=== PATIENT | male | born 1980 | race Caucasian/White ===

== ENCOUNTER 2023-07-23 01:58 | Outpatient (CLI) | payer BC, SELFPAY ==
[2023-07-23 09:20] LABS: Abs Immature Grans 0.01 10^3/uL (0.0-0.06); Absolute Basophil Count 0.03 10^3/uL (0.0-0.2); Absolute Eosinophil Count 0.22 10^3/uL (0.0-0.7); Absolute Lymphocyte Count 1.46 10^3/uL (1.2-3.4); Absolute Monocyte Count 0.36 10^3/uL (0.1-0.8); Absolute Neutrophil Count 2.12 10^3/uL (1.2-6.7); Basophils % 0.7; Eosinophils % 5.2; HCT 46.5 % (40.0-50.0); HGB 15.8 g/dL (13.5-17.5); Immature Grans % 0.2; Lymphocytes % 34.8; MCH 30.7 pg (27.0-33.0); MCV 91 fL (80-95); MPV 9.3 fL (8.0-11.0); Monocytes % 8.6; Neutrophils % 50.5; Platelet Count 193 10^3/uL (130-400); RBC 5.14 10^6/uL (4.36-5.78); RDW-SD 40.2 fL
[2023-07-23 09:51] LABS: ALT 28 U/L (16-63); AST 23 U/L (15-37); Albumin 4.1 g/dL (3.4-5.0); Alkaline Phosphatase 45 U/L (46-116); Anion Gap 4.7 mmol/L (3-11); BUN 20 mg/dL (7-18); Bilirubin, Total 0.8 mg/dL (0.2-1.0); CO2 30.3 mmol/L (21.0-32.0); CREATININE 1.3 mg/dL (0.70-1.30); Calcium 9.2 mg/dL (8.5-10.1); Calculated LDL 122 mg/dL (<100); Chloride 104 mmol/L (98-107); Cholesterol 206 mg/dL (<200); Estimated GFR 69.04 (mL/min/1.73m2); Glucose 98 mg/dL (74-106); HDL Cholesterol 78 mg/dL (40-60); Potassium 4.2 mmol/L (3.5-5.1); Sodium 139 mmol/L (136-145); TSH 0.96 uIU/mL (0.36-3.74); Total Protein 7.4 g/dL (6.4-8.2); Triglyceride 30 mg/dL (<150)
[2023-07-23 10:05] LABS: Vitamin D 25 Total 30.6 ng/mL (30-100)
[2023-07-26 09:03] LABS: Insulin <3.0 uIU/mL (<29.0)
== END 2023-07-23 01:59 | disposition home or self-care (01) ==
PROVIDERS: PCP Naturopath; Visit Provider Acupuncturist
DX: Z00.00 Encounter for general adult medical examination without abnormal findings (principal)
CPT/HCPCS: 36415; 80053; 80061; 82306; 83525; 84154; 84443; 85025